=== PATIENT | female | born 1985 | race Caucasian/White ===

== ENCOUNTER 2016-10-05 21:50 | Emergency (ER) | payer SELFPAY ==
[2016-10-05 22:34] VITALS: BP 104/61
[2016-10-06] MEDS ORDERED: HYDROCODONE/ACETAMINOPHEN 5-325 MG TABLET PO ONE (00:18)
[2016-10-06 00:37] LABS: APPEARANCE,URINE SLIGHTLY-CLOUDY; BILIRUBIN,URINE NEGATIVE (NEGATIVE); GLUCOSE, URINE NEGATIVE (NEGATIVE); KETONES,URINE NEGATIVE (NEGATIVE); LEUKOCYTE ESTERASE,URINE SMALL (NEGATIVE); NITRITE,URINE POSITIVE (NEGATIVE); PROTEIN,URINE NEGATIVE (NEGATIVE); URINE SPECIFIC GRAVITY 1.006; UROBILINOGEN,URINE NEGATIVE mg/dL (<2.0)
[2016-10-06] MEDS ORDERED: LIDOCAINE 1% INJ-PF (10 MG/ML) 30 ML SDV INJ ONE (00:43)
[2016-10-06] MEDS ORDERED: CEFTRIAXONE INJ 1000 MG VIAL IM ONE (00:43)
[2016-10-06] MEDS ORDERED: PHENAZOPYRIDINE HCL 200 MG TABLET PO ONE (00:48)
--- NOTE | 2016-10-06 00:48 | ER Document Report ---
ED GI/ - General Chief Complaint: Urinary pain, low back discomfort Stated Complaint: URINARY ISSUE Mode of Arrival: Ambulatory Information source: Patient Notes: Patient is a 31-year-old female who presents to the ER today for 2-3 days of left lower flank pain radiating around now to the left lower abdomen. Patient also admits to dysuria but denies nausea, vomiting, fever, hematuria or history of kidney stones. She denies any abnormal vaginal discharge. TRAVEL OUTSIDE OF THE [place] IN LAST 30 DAYS: No - Related Data Allergies/Adverse Reactions: No Known Allergies Allergy (Verified 09/03/15 16:53) Past Medical History - General Information source: Patient - Social History Smoking Status: Unknown if Ever Smoked Family History: CAD, CVA, DM, Hyperlipidemia, Hypertension, Malignancy - cervical cancer - Past Medical History Cardiac Medical History: Denies: Hx Coronary Artery Disease, Hx Heart Attack, Hx Hypertension, Hx Pulmonary Embolism Pulmonary Medical History: Reports: Hx Asthma - As a child, has albuterol inhaler as needed, hasn't used it for years. Denies: Hx Bronchitis, Hx COPD, Hx Pneumonia, Hx Sleep Apnea, Hx Tuberculosis Neurological Medical History: Denies: Hx Cerebrovascular Accident, Hx Seizures Endocrine Medical History: Denies: Hx Diabetes Mellitus Type 1, Hx Diabetes Mellitus Type 2 Renal/ Medical History: Reports: Hx Ovarian Cysts. Denies: Hx Peritoneal Dialysis, Hx Pelvic Inflammatory Disease Malignancy Medical History: Denies: Hx Cervical Cancer, Hx Ovarian Cancer GI Medical History: Reports: Hx Endoscopy Musculoskeltal Medical History: Denies Hx Arthritis Psychiatric Medical History: Reports: Hx Depression - Past Surgical History: Reports: Hx Section - x3, Hx Oral Surgery, Hx Tubal Ligation. Denies: Hx Hysterectomy, Hx Pacemaker - Immunizations Immunizations up to date: Yes Hx Diphtheria, Pertussis, Tetanus Vaccination: Yes - 2014 Review of Systems - Review of Systems Constitutional: See HPI EENT: No symptoms reported Cardiovascular: No symptoms reported Respiratory: No symptoms reported Gastrointestinal: No symptoms reported Genitourinary: See HPI Female Genitourinary: No symptoms reported Musculoskeletal: No symptoms reported Skin: No symptoms reported Hematologic/Lymphatic: No symptoms reported Neurological/Psychological: No symptoms reported Physical Exam - Vital signs Vitals: Temp Pulse Resp BP Pulse Ox 98.2 F 80 18 104/61 99 10/05/16 22:33 10/05/16 22:33 10/05/16 22:33 10/05/16 22:33 10/05/16 22:33 - Notes Notes: PHYSICAL EXAMINATION: GENERAL: Mildly ill-appearing, but in no acute distress. HEAD: Atraumatic, normocephalic. NECK: Normal range of motion, supple without lymphadenopathy LUNGS: CTAB and equal. No wheezes rales or rhonchi. HEART: Regular rate and rhythm without murmurs ABDOMEN: Soft, mild right lower quadrant and suprapubic tenderness. No guarding , no rebound BACK: no vertebral tenderness, normal ROM GI/: Right CVA tenderness EXTREMITIES: Normal range of motion, no pitting edema. No cyanosis. NEUROLOGICAL: Cranial nerves grossly intact. Normal sensory/motor exams. PSYCH: Normal mood, normal affect. SKIN: Warm, Dry, normal turgor, no rashes or lesions noted Course - Re-evaluation Re-evalutation: 10/06/16 00:46 Urinalysis indicative of urinary tract infection with leukocytes and 22 white blood cells, positive for nitrites. Patient given Rocephin injection here and will be sent home on Keflex. - Vital Signs Vital signs: Temp Pulse Resp BP Pulse Ox 98.2 F 80 18 104/61 99 10/05/16 22:33 10/05/16 22:33 10/05/16 22:33 10/05/16 22:33 10/05/16 22:33 - Laboratory Laboratory results interpreted by me: 10/06/16 00:15 Urine Nitrite POSITIVE H Ur Leukocyte Esterase SMALL H Discharge - Discharge Clinical Impression: UTI (urinary tract infection) Qualifiers: Urinary tract infection type: site unspecified Hematuria presence: without hematuria Qualified Code(s): N39.0 - Urinary tract infection, site not specified Condition: Stable Disposition: HOME, SELF-CARE Instructions: Urinary Anesthetic Agent ([facility]), Urinary Tract Infection ([facility]), Cephalexin ([facility]) Additional Instructions: Please drink plenty of water! please take all of your antibiotics, even if you feel better. Return immediately for any new or worsening symptoms. Follow up with primary care provider, call tomorrow to make followup appointment. Prescriptions: Cephalexin Monohydrate [Keflex 500 mg Capsule] 500 mg PO BID #14 capsule Phenazopyridine HCl [Pyridium 200 mg Tablet] 200 mg PO TID #15 tablet
== END 2016-10-06 01:23 | disposition home or self-care (01) ==
LOC: ER 21:50
DX: N39.0 Urinary tract infection, site not specified (principal)
CPT/HCPCS: 99283; 96372; 81025; 81001; J3490 ×2; J0696

== ENCOUNTER 2016-12-11 02:17 | Emergency (ER) | payer SELFPAY ==
[2016-12-11] MEDS ORDERED: DIPHENHYDRAMINE HCL 50 MG/ML VIAL IV ONE (06:18)
[2016-12-11] MEDS ORDERED: PROCHLORPERAZINE EDISYLATE INJ 10 MG/2 ML VIAL IV ONE (06:18)
[2016-12-11] MEDS ORDERED: NORMAL SALINE 1000 ML 1,000 ML IV ONE (06:18)
--- NOTE | 2016-12-11 06:33 | ER Document Report ---
ED General - General Chief Complaint: Headache Stated Complaint: HEADACHE Time Seen by Provider: 12/11/16 06:17 Mode of Arrival: Ambulatory Information source: Patient Notes: 31 yr old female hx of migraines presents with complaints of similar headache for 2 days. Patient notes headache was gradual associated with nausea vomiting photosensitivity. Patient denies any fevers or chills TRAVEL OUTSIDE OF THE [place] IN LAST 30 DAYS: No - HPI Onset: Other Onset/Duration: Persistent Quality of pain: Achy Severity: Mild Pain Level: 1 Associated symptoms: Headache, Nausea, Vomiting Exacerbated by: Denies Relieved by: Denies Similar symptoms previously: Yes Recently seen / treated by doctor: Yes - Related Data Allergies/Adverse Reactions: No Known Allergies Allergy (Verified 09/03/15 16:53) Past Medical History - Social History Smoking Status: Never Smoker Cigarette use (# per day): No Chew tobacco use (# tins/day): No Smoking Education Provided: No Family History: CAD, CVA, DM, Hyperlipidemia, Hypertension, Malignancy - cervical cancer Patient has suicidal ideation: No Patient has homicidal ideation: No - Past Medical History Cardiac Medical History: Denies: Hx Coronary Artery Disease, Hx Heart Attack, Hx Hypertension, Hx Pulmonary Embolism Pulmonary Medical History: Reports: Hx Asthma - As a child, has albuterol inhaler as needed, hasn't used it for years. Denies: Hx Bronchitis, Hx COPD, Hx Pneumonia, Hx Sleep Apnea, Hx Tuberculosis Neurological Medical History: Denies: Hx Cerebrovascular Accident, Hx Seizures Endocrine Medical History: Denies: Hx Diabetes Mellitus Type 1, Hx Diabetes Mellitus Type 2 Renal/ Medical History: Reports: Hx Ovarian Cysts. Denies: Hx Peritoneal Dialysis, Hx Pelvic Inflammatory Disease Malignancy Medical History: Denies: Hx Cervical Cancer, Hx Ovarian Cancer GI Medical History: Reports: Hx Endoscopy Musculoskeltal Medical History: Denies Hx Arthritis Psychiatric Medical History: Reports: Hx Depression - Past Surgical History: Reports: Hx Section - x3, Hx Oral Surgery, Hx Tubal Ligation. Denies: Hx Hysterectomy, Hx Pacemaker - Immunizations Immunizations up to date: Yes Hx Diphtheria, Pertussis, Tetanus Vaccination: Yes - 2014 Review of Systems - Review of Systems Notes: REVIEW OF SYSTEMS: CONSTITUTIONAL : Denies fever, chills, or sweats. Denies recent illness. EENT: Denies eye, ear, throat, or mouth pain or symptoms. Denies nasal or sinus congestion or discharge. Denies throat, tongue, or mouth swelling or difficulty swallowing. CARDIOVASCULAR: Denies chest pain. Denies palpitations or racing or irregular heart beat. Denies ankle edema. RESPIRATORY: Denies cough, cold, or chest congestion. Denies shortness of breath, difficulty breathing, or wheezing. GASTROINTESTINAL: Nausea vomiting GENITOURINARY: Denies difficulty urinating, painful urination, burning, frequency, blood in urine, or discharge. FEMALE GENITOURINARY: Denies vaginal bleeding, heavy or abnormal periods, irregular periods. Denies vaginal discharge or odor. MUSCULOSKELETAL: Denies back or neck pain or stiffness. Denies joint pain or swelling. SKIN: Denies rash, lesions or sores. HEMATOLOGIC : Denies easy bruising or bleeding. LYMPHATIC: Denies swollen, enlarged glands. NEUROLOGICAL: Admits headaches PSYCHIATRIC: Denies anxiety or stress. Denies depression, suicidal ideation, or homicidal ideation. ALL OTHER SYSTEMS REVIEWED AND NEGATIVE. PHYSICAL EXAMINATION: GENERAL: Well-appearing, well-nourished and in no acute distress. Patient resting in dark room HEAD: Atraumatic, normocephalic. EYES: Pupils equal round and reactive to light, extraocular movements intact, conjunctiva are normal. ENT: Nares patent, oropharynx clear without exudates. Moist mucous membranes. NECK: Normal range of motion, supple without lymphadenopathy LUNGS: Breath sounds clear to auscultation bilaterally and equal. No wheezes rales or rhonchi. HEART: Regular rate and rhythm without murmurs ABDOMEN: Soft, nontender, nondistended abdomen. No guarding, no rebound. No masses appreciated. Female : deferred Musculoskeletal: Normal range of motion, no pitting or edema. No cyanosis. NEUROLOGICAL: Cranial nerves grossly intact. Normal speech, normal gait. Normal sensory, motor exams PSYCH: Normal mood, normal affect. SKIN: Warm, Dry, normal turgor, no rashes or lesions noted. Dictation was performed using [employer] voice recognition software Physical Exam - Vital signs Vitals: Temp Pulse Resp BP Pulse Ox 98.2 F 65 16 126/80 H 100 12/11/16 02:25 12/11/16 02:25 12/11/16 02:25 12/11/16 02:25 12/11/16 02:25 Course - Re-evaluation Re-evalutation: 12/11/16 07:18 Labwork notes no significant abnormality, physical examination noted no significant abnormality either, given that this is a chronic appearing headache with no neurological deficits I believe a CT is an appropriate at this time due to the radiation. Otherwise patient looks well treated symptomatically and will be given follow-up with neurology as she has never seen a neurologist After performing a Medical Screening Examination, I estimate there is LOW risk for ACUTE GLAUCOMA, TEMPORAL ARTERITIS, MENINGITIS, INCRANIAL HEMORRHAGE, or ISCHEMIC STROKE thus I consider the discharge disposition reasonable. I have reevaluated this patient multiple times and no significant life threatening changes are noted. The patient and I have discussed the diagnosis and risks, and we agree with discharging home with close follow-up with the understanding that symptoms and presentations can change. We also discussed returning to the Emergency Department immediately if new or worsening symptoms occur. We have discussed the symptoms which are most concerning (e.g., changing or worsening symptoms, new numbness or weakness, vomiting, fever) that necessitate immediate return. - Vital Signs Vital signs: Temp Pulse Resp BP Pulse Ox 98.2 F 65 16 126/80 H 100 12/11/16 02:25 12/11/16 02:25 12/11/16 02:25 12/11/16 02:25 12/11/16 02:25 - Laboratory Result Diagrams: 12/11/16 06:42 12/11/16 06:42 Laboratory results interpreted by me: 12/11/16 05:39 POC Glucose 112 H Discharge - Discharge Clinical Impression: Migraine Qualifiers: Migraine type: unspecified Status migrainosus presence: without status migrainosus Intractability: not intractable Qualified Code(s): G43.909 - Migraine, unspecified, not intractable, without status migrainosus Condition: Stable Disposition: HOME, SELF-CARE Instructions: Headache ([facility]) Prescriptions: Promethazine HCl [Phenergan 25 mg Tablet] 1 - 2 tab PO Q6H PRN #15 tablet PRN Reason: Referrals: THELMA DIGGS MD [ACTIVE STAFF] - Follow up tomorrow
[2016-12-11 06:50] LABS: ABSOLUTE EOSINOPHILS # (AUTO) 0.4 10^3/uL (0.0-0.6); ABSOLUTE LYMPHOCYTES (AUTO) 2.6 10^3/uL (0.5-4.7); ABSOLUTE MONOCYTES (AUTO) 0.5 10^3/uL (0.1-1.4); ABSOLUTE NEUT (AUTO) 3.4 10^3/uL (1.7-8.2); BASOPHILS % (AUTO) 0.4 % (0-2); EOSINOPHILS % (AUTO) 5.9 % (0-6); HEMOGLOBIN 12.3 g/dL (12.0-15.5); HGB HCT DIFFERENCE -1.1; LYMPHOCYTES % (AUTO) 38.1 % (13-45); MEAN CORPUSCULAR HEMOGLOBIN 29.2 pg (27.0-33.4); MEAN CORPUSCULAR HGB CONC 32.5 g/dL (32.0-36.0); MEAN CORPUSCULAR VOLUME 90 fl (80-97); MONOCYTES % (AUTO) 7.1 % (3-13); RED BLOOD COUNT 4.22 10^6/uL (3.72-5.28); SEGMENTED NEUTROPHILS % (AUTO) 48.5 % (42-78); WHITE BLOOD COUNT 6.9 10^3/uL (4.0-10.5)
[2016-12-11 07:07] LABS: ALANINE AMINOTRANSFERASE 26 U/L (9-52); ALBUMIN 4.4 g/dL (3.5-5.0); ALKALINE PHOSPHATASE 48 U/L (38-126); ANION GAP 11 (5-19); ASPARTATE AMINO TRANSFERASE 18 U/L (14-36); BILIRUBIN,DIRECT 0.3 mg/dL (0.0-0.4); BILIRUBIN,TOTAL 0.4 mg/dL (0.2-1.3); BLOOD UREA NITROGEN 13 mg/dL (7-20); CALCIUM 9.1 mg/dL (8.4-10.2); CARBON DIOXIDE 27 mmol/L (22-30); CHLORIDE 103 mmol/L (98-107); CREATININE RESULT 0.63 mg/dL (0.52-1.25); GLUCOSE 92 mg/dL (75-110); POTASSIUM 4.1 mmol/L (3.6-5.0); SODIUM 141.1 mmol/L (137-145); TOTAL PROTEIN 7.3 g/dL (6.3-8.2)
[2016-12-11 09:07] VITALS: BP 125/72
== END 2016-12-11 09:07 | disposition home or self-care (01) ==
LOC: ER 02:17
DX: G43.909 Migraine, unspecified, not intractable, without status migrainosus (principal); R11.2 Nausea with vomiting, unspecified
CPT/HCPCS: 99283; 96361; 96374; 96375; 36415; 82962; 85025; 80053; J1200; J0780; J7030

== ENCOUNTER 2017-09-10 14:13 | Emergency (ER) | payer MEDICAID ==
--- NOTE | 2017-09-10 14:55 | ER Document Report ---
ED Medical Screen (RME) - General Chief Complaint: Suicidal Ideation Stated Complaint: PSYCH EVAL Time Seen by Provider: 09/10/17 14:53 Notes: RME DISCLOSURE I have seen this patient as part of a Rapid Medical Evaluation and, if applicable, placed any initially appropriate orders. The patient will be seen and fully evaluated, including a full history and physical exam, by a provider ( in Main ED or Fast Track) when a room becomes available. 32-year-old female PMH psychiatric disorders here with mother after she cut her right wrist with a sharp object earlier today. She states that she did not realize what she was doing and that when she finally "snapped out of it" and saw her wounds, she freaked out. She reports having daily suicidal ideations but "I never act on it". She has not been on her psychiatric medications for almost a year. TRAVEL OUTSIDE OF THE [place] IN LAST 30 DAYS: No - Related Data Allergies/Adverse Reactions: No Known Allergies Allergy (Verified 09/03/15 16:53) Past Medical History - Past Medical History Cardiac Medical History: Denies: Hx Coronary Artery Disease, Hx Heart Attack, Hx Hypertension, Hx Pulmonary Embolism Pulmonary Medical History: Reports: Hx Asthma - As a child, has albuterol inhaler as needed, hasn't used it for years. Denies: Hx Bronchitis, Hx COPD, Hx Pneumonia, Hx Sleep Apnea, Hx Tuberculosis Neurological Medical History: Denies: Hx Cerebrovascular Accident, Hx Seizures Endocrine Medical History: Denies: Hx Diabetes Mellitus Type 1, Hx Diabetes Mellitus Type 2 Renal/ Medical History: Reports: Hx Ovarian Cysts. Denies: Hx Peritoneal Dialysis, Hx Pelvic Inflammatory Disease Malignancy Medical History: Denies: Hx Cervical Cancer, Hx Ovarian Cancer GI Medical History: Reports: Hx Endoscopy Musculoskeltal Medical History: Denies Hx Arthritis Psychiatric Medical History: Reports: Hx Depression - Past Surgical History: Reports: Hx Section - x3, Hx Oral Surgery, Hx Tubal Ligation. Denies: Hx Hysterectomy, Hx Pacemaker - Immunizations Immunizations up to date: Yes Hx Diphtheria, Pertussis, Tetanus Vaccination: Yes - 2015 Physical Exam - Vital signs Vitals: Temp Pulse Resp BP Pulse Ox 97.9 F 96 20 116/76 99 09/10/17 14:20 09/10/17 14:20 09/10/17 14:20 09/10/17 14:20 09/10/17 14:20 Course - Vital Signs Vital signs: Temp Pulse Resp BP Pulse Ox 97.9 F 96 20 116/76 99 09/10/17 14:20 09/10/17 14:20 09/10/17 14:20 09/10/17 14:20 09/10/17 14:20
[2017-09-10 15:38] LABS: ABSOLUTE EOSINOPHILS # (AUTO) 0.2 10^3/uL (0.0-0.6); ABSOLUTE MONOCYTES (AUTO) 0.5 10^3/uL (0.1-1.4); ABSOLUTE NEUT (AUTO) 3.7 10^3/uL (1.7-8.2); BASOPHILS % (AUTO) 0.7 % (0-2); HEMATOCRIT 40.4 % (36.0-47.0); HEMOGLOBIN 13.3 g/dL (12.0-15.5); LYMPHOCYTES % (AUTO) 31.3 % (13-45); MEAN CORPUSCULAR HEMOGLOBIN 29.4 pg (27.0-33.4); MEAN CORPUSCULAR VOLUME 89 fl (80-97); MONOCYTES % (AUTO) 8.2 % (3-13); PLATELET COUNT 389 10^3/uL (150-450); RED BLOOD COUNT 4.53 10^6/uL (3.72-5.28); RED CELL DISTRIBUTION WIDTH 12.6 % (11.5-14.0); SEGMENTED NEUTROPHILS % (AUTO) 56.8 % (42-78); TOTAL CELLS COUNTED % (AUTO) 100 %; WHITE BLOOD COUNT 6.5 10^3/uL (4.0-10.5)
[2017-09-10 15:48] LABS: APPEARANCE,URINE CLOUDY; BILIRUBIN,URINE NEGATIVE (NEGATIVE); GLUCOSE, URINE NEGATIVE (NEGATIVE); KETONES,URINE TRACE mg/dL (NEGATIVE); LEUKOCYTE ESTERASE,URINE LARGE (NEGATIVE); NITRITE,URINE NEGATIVE (NEGATIVE); PROTEIN,URINE 30 mg/dL (NEGATIVE); URINE SPECIFIC GRAVITY 1.025; UROBILINOGEN,URINE NEGATIVE mg/dL (<2.0)
[2017-09-10 15:50] LABS: COLOR,URINE DARK YELLOW
[2017-09-10 15:56] LABS: URINE BARBITURATES SCREEN NEGATIVE; URINE BENZODIAZEPINES SCREEN UNCONFIRMED POSITIVE; URINE COCAINE SCREEN NEGATIVE; URINE MARIJUANA (THC) SCREEN NEGATIVE; URINE METHADONE SCREEN NEGATIVE; URINE PHENCYCLIDINE SCREEN NEGATIVE
--- NOTE | 2017-09-10 16:07 | ER Document Report ---
ED Psych Disorder / Suicide <SHANNAN RIGGINS - Last Filed: 09/10/17 17:25> - General TRAVEL OUTSIDE OF THE [place] IN LAST 30 DAYS: No <SHIRLEY JONES - Last Filed: 09/10/17 17:30> - General Chief Complaint: Suicidal Ideation Stated Complaint: PSYCH EVAL Time Seen by Provider: 09/10/17 14:53 Notes: Patient is here because of 2 self-inflicted wounds to the medial right wrist, one occurring 2 days ago and the other occurring today. She does not remember exactly what happens, describing herself as being "blacked out" or "zoned out", and then snapping out of it. She says that she has been diagnosed in the past with ADHD and manic bipolar disorder and in the past has been on Zoloft, Vyvanse , and trazodone, but currently is not seeing a local mental health provider because she does not have insurance and she also does not take her medications very often because of the same reason. She says that she is having difficulty sleeping any at all and her appetite is very poor. Feels like she has frequent panic attacks. Does not specifically say that she has any suicidal thoughts. (SHIRLEY JONES) - Related Data Allergies/Adverse Reactions: No Known Allergies Allergy (Verified 09/03/15 16:53) Past Medical History - Social History Smoking Status: Current Every Day Smoker Chew tobacco use (# tins/day): No Frequency of alcohol use: Occasional Drug Abuse: None Family History: Reviewed & Not Pertinent, CAD, CVA, DM, Hyperlipidemia, Hypertension, Malignancy - cervical cancer Patient has suicidal ideation: Yes Patient has homicidal ideation: No Pulmonary Medical History: Reports: Hx Asthma - As a child, has albuterol inhaler as needed, hasn't used it for years. Renal/ Medical History: Reports: Hx Ovarian Cysts GI Medical History: Reports: Hx Endoscopy Psychiatric Medical History: Reports: Hx Anxiety, Hx Attention Deficit Hyperactivity Disorder, Hx Bipolar Disorder, Hx Depression - Past Surgical History: Reports: Hx Section - x3, Hx Oral Surgery, Hx Tubal Ligation - Immunizations Immunizations up to date: Yes Hx Diphtheria, Pertussis, Tetanus Vaccination: Yes - 2014 <SHIRLEY JONES - Last Filed: 09/10/17 17:30> Review of Systems <SHANNAN RIGGINS - Last Filed: 09/10/17 17:25> <SHIRLEY JONES - Last Filed: 09/10/17 17:30> - Review of Systems Notes: REVIEW OF SYSTEMS: CONSTITUTIONAL : Denies fever. EENT: Denies eye, ear, nose or mouth or throat pain or other symptoms. CARDIOVASCULAR: Denies chest pain. RESPIRATORY: Denies cough, chest congestion, or shortness of breath. GASTROINTESTINAL: Denies abdominal pain or nausea, vomiting, or diarrhea. GENITOURINARY: Denies difficulty or painful urinating, urinary frequency, blood in urine. MUSCULOSKELETAL: Denies back or neck pain. Denies joint pain or swelling. SKIN: Denies rash or skin lesions except for the self-inflicted wound of the right medial wrist region which is described elsewhere in the patient's record. NEUROLOGICAL: See HPI. Denies headache. Denies sensory loss or motor deficits. ALL OTHER SYSTEMS REVIEWED AND NEGATIVE. (SHIRLEY JONES) Physical Exam <SHANNAN RIGGINS - Last Filed: 09/10/17 17:25> - Vital signs Interpretation: Normal <SIHRLEY JONES - Last Filed: 09/10/17 17:30> - Vital signs Vitals: Temp Pulse Resp BP Pulse Ox 97.9 F 96 20 116/76 99 09/10/17 14:20 09/10/17 14:20 09/10/17 14:20 09/10/17 14:20 09/10/17 14:20 - Notes Notes: PHYSICAL EXAMINATION: GENERAL: Well-appearing, in no acute distress. Vital signs are all normal. HEAD: Atraumatic, normocephalic. EYES: Pupils equal round and reactive to light, extraocular movements intact. ENT: oropharynx clear without exudates. Moist mucous membranes. NECK: Normal range of motion, supple. LUNGS: Breath sounds clear and equal bilaterally. HEART: Regular rate and rhythm without murmurs. ABDOMEN: Soft, nontender. No guarding or rebound. No masses. BACK: No tenderness throughout entire back. EXTREMITIES: Normal range of motion without pain. NEUROLOGICAL: Normal speech, normal gait. Normal sensory, motor, and reflex exams. Awake, alert, and oriented x3. Cranial nerves normal. PSYCH: Normal mood, normal affect. Does not act depressed. SKIN: Warm, dry, no rashes. Patient has a superficial longitudinal laceration of the medial aspect of the right wrist, proximal to the wrist joint itself. This laceration is about 3 cm in length but not very deep and does not require suturing. Towards the distal end of that longitudinal laceration is a crossing laceration that is about 1 cm in total length and is to is superficial and does not require sutures. No evidence of infection of either of these wounds. ( SHIRLEY JONES) Course - Laboratory Result Diagrams: 09/10/17 15:16 09/10/17 15:16 <SHANNAN RIGGINS - Last Filed: 09/10/17 17:25> - Laboratory Result Diagrams: 09/10/17 15:16 09/10/17 15:16 - EKG Interpretation by Nc EKG shows normal: Sinus rhythm Rate: Normal Rhythm: NSR - At 72 <SHIRLEY JONES - Last Filed: 09/10/17 17:30> - Re-evaluation Re-evalutation: 09/10/17 16:13 Routine labs will be ordered. Consultation by mental health has been requested. (SHIRLEY JONES) - Vital Signs Vital signs: Temp Pulse Resp BP Pulse Ox 97.9 F 96 20 116/76 99 09/10/17 14:20 09/10/17 14:20 09/10/17 14:20 09/10/17 14:20 09/10/17 14:20 - Laboratory Laboratory results interpreted by ne: 09/10/17 09/10/17 15:16 15:16 Alkaline Phosphatase 36 L Urine Protein 30 H Urine Ketones TRACE H Urine Blood SMALL H Ur Leukocyte Esterase LARGE H Salicylates < 1.0 L Acetaminophen < 10 L - EKG Interpretation by Nc Additional EKG results interpreted by ne: 09/10/17 16:16 EKG is normal. (SHIRLEY JONES) Discharge <SHANNAN RIGGINS - Last Filed: 09/10/17 17:25> <SHIRLEY JONES - Last Filed: 09/10/17 17:30> - Discharge Clinical Impression: Substance abuse Condition: Stable Disposition: HOME, SELF-CARE Additional Instructions: AMPHETAMINE / METHAMPHETAMINE ABUSE: Amphetamines are addicting stimulants. Amphetamines overstimulate the nervous system and give a false feeling of power and mastery. These drugs may be obtained as prescription pills for weight loss, narcolepsy, or attention- deficit disorder. More often they're bought as an illegal street drug, methamphetamine (crank, crystal, speed). Using amphetamines repeatedly can lead to serious medical problems including malnutrition, severe depression, and paranoia. It can take increasing amounts to feel good. Eventually, there will be a "burn out." When you go off amphetamines there is a period of depression that may last for weeks or even months. High doses of amphetamines can cause seizures, confusion, hallucinations, delusions, high blood pressure, muscle damage, heart damage, or sudden . Many times these deadly complications occur even with "normal" doses. Injection of amphetamines is risky for developing abscesses, endocarditis ( heart infection), pneumonia, and AIDS. Withdrawal from amphetamines often causes anxiety, depression, and drug cravings. Some users become paranoid and psychotic. There may be cramps, nausea , and vomiting. Many treatment programs are available, but you must make the decision to quit. Medication can be prescribed to control the symptoms of amphetamine toxicity (beta blockers or benzodiazepines). Withdrawal symptoms may require tranquilizers. FOLLOW-UP CARE: Please follow-up with outpatient mental health provider in 3-5 days for continued mental health treatment. It you are encouraged to receive a substance abuse assessment to further identify appropriate treatment. If you experience worsening or a significant change in your symptoms, notify the physician immediately or return to the Emergency Department at any time for re- evaluation.
[2017-09-10 16:14] LABS: ALANINE AMINOTRANSFERASE 19 U/L (9-52); ALBUMIN 4.2 g/dL (3.5-5.0); ALKALINE PHOSPHATASE 36 U/L (38-126); ANION GAP 8 (5-19); ASPARTATE AMINO TRANSFERASE 22 U/L (14-36); BILIRUBIN,DIRECT 0.3 mg/dL (0.0-0.4); BILIRUBIN,TOTAL 0.3 mg/dL (0.2-1.3); BLOOD UREA NITROGEN 7 mg/dL (7-20); CALCIUM 9.5 mg/dL (8.4-10.2); CARBON DIOXIDE 30 mmol/L (22-30); CHLORIDE 106 mmol/L (98-107); GLUCOSE 103 mg/dL (75-110); POTASSIUM 4.6 mmol/L (3.6-5.0); SODIUM 144.3 mmol/L (137-145); TOTAL PROTEIN 6.5 g/dL (6.3-8.2)
[2017-09-10 16:16] LABS: ACETAMINOPHEN < 10 ug/mL (10-30); ALCOHOL < 10 mg/dL (NONE DETECTED); SALICYLATE < 1.0 mg/dL (2.0-20.0)
[2017-09-10 17:46] VITALS: BP 105/61
--- NOTE | 2017-09-10 21:01 | EKG REPORT ---
SEVERITY:- NORMAL ECG - SINUS RHYTHM : Confirmed by: Maria D Newman 10-Sep-2017 21:01:35
--- NOTE | 2017-09-12 09:53 | PSYCHOLOGICAL NOTE ---
Psych Note - Psych Note Psych Note: Reason from consult: "blacking out" self harm consent permissions: both patient's parent Pt presented to the ED with complaints of suicidal ideation/attempt today. Pt has cut on inside of right wrist. Pt reports that cutting wrist twice but doesn' t remember doing it. Pt reports that she blacked out. Pt reports trouble sleeping and anxiety attacks. Patient disclosed difficulties with concentration. He was just arrested and the patient and her children are currently living with her brother. She use to be seen at [facility] before we lost insurance. She disclosed she found one last Vyvanse the other night and took it "to just get through the day." She reports that last night she got "into a trance or something...walked into the bathroom and started cutting." She reports that she "woke up" and saw what she did and "freaked out." She denies wanting to hurt herself. Public record indicates the patient does not have any court dates coming up and the [place] controlled substance report does not indicate any concerning trends Patient's toxicology report indicates patient has multiple substance in her system (patient disclosed taking only one vyvanse, "the other night") and high probability of methamphetamine. Patient's parents came into the room and clinician again confirmed consent permissions. After patient consented, clinician discussed substance abuse. Patient denies and stated she does not know how she would have been exposed to drugs. Patient's father stated, "remember that pill I confiscated from you? ...Her brother found her last night completely out of it...he was scared and called me." Patient disclosed that it was given to her to only calm her anxiety. Clinician discussed the importance of not taking medication from other people and only taking her medication as prescribed. Patient is alert and orientated to person,place, time and circumstance. Mood is anxious with congruent affect (chewing on her nails, with her other arm wrapped around her stomach- mild psychomotor agitation with shaking her foot. Patient denies suicidal and homicidal ideation. She discloses a "trance" or "black out" were she did self harm; clinician observed some superficial scratches going across her inner wrist. Patient appears to have been under the influence of drugs at the time. Delusions are absent and behaviors congruent with intact reality based presentation i.e. organized and linear thought processes. Eye contact was well-maintained. Conversational speech is within normal rate, tone and prosody. Intellectual abilities appear to be within the average range. Attention and concentration are good. Insight, judgment, impulse control are currently good. Substance abuse Impression\\plan: Patient is cleared from acute psychiatric services. Patient does not meet IVC criteria per [place] GS 122C. Patient describes concern over a period of a "trance" or "blackout" that she experienced last night when she engaged in self-harm. Patient denies suicidal ideation or wanting to harm herself. Upon further investigation patient appeared to have taken an unknown substance last night that led her to be "completely out of it" per her father. Clinician discussed at great length the importance of taking only your medication as prescribed and not taking illegal substances. Patient's father had many questions in regards to substance abuse; clinician provided basic information and suggested family research substance abuse online together. Patient's family is in agreement to this. Patient was provided local resource list to include mobile crisis contact information. Patient is encouraged to have a substance abuse evaluation to determine proper treatment through an outpatient mental health provider. Dr. Olson was consulted and the care and management of this patient; attending physician is in agreement with her conditions and disposition.
== END 2017-09-10 17:46 | disposition home or self-care (01) ==
LOC: ER 14:13
DX: R45.851 Suicidal ideations (principal); F17.200 Nicotine dependence, unspecified, uncomplicated; F19.10 Other psychoactive substance abuse, uncomplicated; Z98.51 Tubal ligation status
CPT/HCPCS: 36415; 80053; 80307; 81001; 85025; 93005; 93010; 99285

== ENCOUNTER 2017-11-10 18:47 | Emergency (ER) | payer MEDICAID ==
[2017-11-10 18:58] VITALS: BP 110/70
== END 2017-11-10 20:07 | disposition left against medical advice (07) ==
LOC: ER 18:47
DX: Z53.21 Procedure and treatment not carried out due to patient leaving prior to being seen by health care provider (principal)

== ENCOUNTER 2017-11-29 23:11 | Emergency (ER) | payer SELFPAY ==
[2017-11-30] MEDS ORDERED: HYDROCODONE/ACETAMINOPHEN 5-325 MG TABLET PO ONE (00:27)
--- NOTE | 2017-11-30 01:16 | RADIOLOGY REPORT (SQ) ---
EXAM DESCRIPTION: XR ANKLE 2 VIEWS COMPLETED DATE/TME: 11/29/2017 23:25 CLINICAL HISTORY: 32 years, Female, pain COMPARISON: None. NUMBER OF VIEWS: Three views TECHNIQUE: AP lateral and oblique views of the ankle LIMITATIONS: None. FINDINGS: No ankle effusion. No acute fracture. Soft tissue swelling laterally. Talar dome appears intact. IMPRESSION: Soft tissue swelling laterally without acute fracture noted 2010 [employer]- All Rights Reserved
--- NOTE | 2017-11-30 01:19 | ER Document Report ---
ED General - General Chief Complaint: Ankle Pain Stated Complaint: RIGHT ANKLE PAIN Time Seen by Provider: 11/30/17 00:18 Notes: Patient is a 32-year-old female presents with complaint of pain swelling to the lateral aspect of the right ankle. Patient says it has been there for over 2 days. She is unsure exactly what happened but she thinks she has some sort of insect or possible spider bite to her ankle. She said she said continues redness and swelling over the lateral area. Says it hurts to bear weight. She has been taken [id number] pain medicine but still has a lot of pain. She denies any snake bites are seening a snake. She denies being bitten while she was [place] the [place]. TRAVEL OUTSIDE OF THE [place] IN LAST 30 DAYS: No - Related Data Allergies/Adverse Reactions: No Known Allergies Allergy (Verified 09/03/15 16:53) Past Medical History - Social History Smoking Status: Never Smoker Frequency of alcohol use: None Drug Abuse: None Family History: Reviewed & Not Pertinent, CAD, CVA, DM, Hyperlipidemia, Hypertension, Malignancy - cervical cancer - Past Medical History Cardiac Medical History: Denies: Hx Coronary Artery Disease, Hx Heart Attack, Hx Hypertension, Hx Pulmonary Embolism Pulmonary Medical History: Reports: Hx Asthma - As a child, has albuterol inhaler as needed, hasn't used it for years. Denies: Hx Bronchitis, Hx COPD, Hx Pneumonia, Hx Sleep Apnea, Hx Tuberculosis Neurological Medical History: Denies: Hx Cerebrovascular Accident, Hx Seizures Endocrine Medical History: Denies: Hx Diabetes Mellitus Type 1, Hx Diabetes Mellitus Type 2 Renal/ Medical History: Reports: Hx Ovarian Cysts. Denies: Hx Peritoneal Dialysis, Hx Pelvic Inflammatory Disease Malignancy Medical History: Denies: Hx Cervical Cancer, Hx Ovarian Cancer GI Medical History: Reports: Hx Endoscopy Musculoskeltal Medical History: Denies Hx Arthritis Psychiatric Medical History: Reports: Hx Anxiety, Hx Attention Deficit Hyperactivity Disorder, Hx Bipolar Disorder, Hx Depression - Past Surgical History: Reports: Hx Section - x3, Hx Oral Surgery, Hx Tubal Ligation. Denies: Hx Hysterectomy, Hx Pacemaker - Immunizations Immunizations up to date: Yes Hx Diphtheria, Pertussis, Tetanus Vaccination: Yes - 2015 Review of Systems - Review of Systems Notes: My Normal Review Basic REVIEW OF SYSTEMS: CONSTITUTIONAL : Denies fever, chills, or sweats. Denies recent illness. RESPIRATORY: Denies cough, cold, or chest congestion. Denies shortness of breath, difficulty breathing, or wheezing. GASTROINTESTINAL: Denies abdominal pain. Denies nausea, vomiting, or diarrhea. MUSCULOSKELETAL: Pain and swelling to right ankle. SKIN: Denies rash or skin lesions. NEUROLOGICAL: Denies sensory or motor loss. ALL OTHER SYSTEMS REVIEWED AND NEGATIVE. Physical Exam - Vital signs Vitals: Temp Pulse Resp BP Pulse Ox 98.4 F 89 18 104/61 100 11/29/17 23:55 11/29/17 23:55 11/29/17 23:55 11/29/17 23:55 11/29/17 23:55 - Notes Notes: General Appearance: Well nourished, alert, cooperative, no acute distress, moderate obvious discomfort. Vitals: reviewed, See vital signs table. Extremities: strength 5/5 in all extremities, good pulses in all extremities, patient is a localized area of redness and swelling to the lateral malleolus of the right ankle. Redness is very faint is consistent with that of a venomous bite of some sort. Redness is just localized to the malleolus itself. There is no swelling going up the leg. There are not any arshad consistent with that of snakebite. She has good distal sensation good pulses. Good capillary refill in the foot. Skin: warm, dry, appropriate color, no rash Neuro: speech clear, oriented x 3, normal affect, responds appropriately to questions. Course - Re-evaluation Re-evalutation: 11/30/17 01:24 Patient's findings are consistent with that of a venomous bite or sting. She does have a tenderness associated with it. She does not have any skin breakdown or soft tissue breakdown as she would see with a primary clues and brown recluse bite would be very rare in her area. She has not had any abdominal pain vomiting or muscle aches as she would see with a black . She does have a very small round possible bite olga the center of the area of erythema. Findings more consistent with that of a bug bite. She does not have arshad that are consistent with that of snakebite. Encourage her to keep her foot elevated. Encourage her to do ice alternating. I will prescribe her some pain medicine. X-ray did not show any bony injury or foreign body. I informed patient that her swelling and redness should improve in the next 1-2 days. If it does not she must return to ER immediately. I encouraged her return to ER immediately if she has any increasing swelling, spreading redness, fevers, or feels unwell. Patient agrees with plan will be discharged home. Dictation of this chart was performed using voice recognition software; therefore, there may be some unintended grammatical errors. - Vital Signs Vital signs: Temp Pulse Resp BP Pulse Ox 98.4 F 89 18 104/61 100 11/29/17 23:55 11/29/17 23:55 11/29/17 23:55 11/29/17 23:55 11/29/17 23:55 Discharge - Discharge Clinical Impression: Right ankle pain Qualifiers: Chronicity: acute Qualified Code(s): M25.571 - Pain in right ankle and joints of right foot Condition: Good Disposition: HOME, SELF-CARE Instructions: Oral Narcotic Medication ([facility]) Additional Instructions: Please keep the ankle elevated and apply ice for no more than 20 minutes at a time. Please return to the ER immediately if you have worsening redness, increasing swelling, fevers, or feel unwell. Please return to the ER if you do not have improvement in swelling within 3 days.
[2017-11-30 02:09] VITALS: BP 106/76
== END 2017-11-30 01:25 | disposition home or self-care (01) ==
LOC: ER 23:11
DX: M25.571 Pain in right ankle and joints of right foot (principal); M25.471 Effusion, right ankle; L53.9 Erythematous condition, unspecified
CPT/HCPCS: 99283

== ENCOUNTER → 2018-11-17 | Outpatient (CLI) | payer MEDICAID ==
[2018-11-17 19:14] LABS: ABSOLUTE EOSINOPHILS # (AUTO) 0.4 10^3/uL (0.0-0.6); ABSOLUTE LYMPHOCYTES (AUTO) 2.2 10^3/uL (0.5-4.7); ABSOLUTE MONOCYTES (AUTO) 0.5 10^3/uL (0.1-1.4); ABSOLUTE NEUT (AUTO) 3.8 10^3/uL (1.7-8.2); BASOPHILS % (AUTO) 0.4 % (0-2); EOSINOPHILS % (AUTO) 5.3 % (0-6); HEMOGLOBIN 12.4 g/dL (12.0-15.5); LYMPHOCYTES % (AUTO) 31.8 % (13-45); MEAN CORPUSCULAR HEMOGLOBIN 29.8 pg (27.0-33.4); MEAN CORPUSCULAR HGB CONC 33.6 g/dL (32.0-36.0); MEAN CORPUSCULAR VOLUME 89 fl (80-97); MONOCYTES % (AUTO) 6.8 % (3-13); PLATELET COUNT 376 10^3/uL (150-450); RED BLOOD COUNT 4.16 10^6/uL (3.72-5.28); RED CELL DISTRIBUTION WIDTH 12.6 % (11.5-14.0); SEGMENTED NEUTROPHILS % (AUTO) 55.7 % (42-78); TOTAL CELLS COUNTED % (AUTO) 100 %; WHITE BLOOD COUNT 6.8 10^3/uL (4.0-10.5)
[2018-11-22 11:09] LABS: LYME DISEASE IGM AB <0.80 index (0.00-0.79)
== END ==
LOC: LAB 18:44
PROVIDERS: ATTEND Nurse Practitioner Acute Care
DX: T14.8XXA Other injury of unspecified body region, initial encounter (principal); W57.XXXA Bitten or stung by nonvenomous insect and other nonvenomous arthropods, initial encounter
CPT/HCPCS: 36415; 85025; 86617; 86618

== ENCOUNTER 2018-12-02 17:25 | Emergency (ER) | payer MEDICAID ==
--- NOTE | 2018-12-02 17:36 | ER Document Report ---
ED Medical Screen (RME) - General Chief Complaint: Suicidal Ideation Stated Complaint: PSYCH EVAL Time Seen by Provider: 12/02/18 17:30 Primary Care Provider: CRISTIAN RODRIGUEZ NP [Primary Care Provider] - Follow up as needed Mode of Arrival: Ambulatory Information source: Patient Notes: 33-year-old female presented to ED [facility]. She states she is been having a lot of issues with her brother and other issues happening which is made her depression much worse and then yesterday her best friend took a bunch of her diabetic pills to commit suicide and the patient has been told that the friend is now brain with organ damage and no neurological function. She states this is made her severely depressed and she is afraid she will cut herself she says she does not want to kill herself but she is afraid she will. She then stated she was not having suicidal thoughts she just does not want to mutilate herself. Patient is alert oriented respirations regular and unlabored speaking with full sentences. She is with her mother. I have greeted and performed a rapid initial assessment of this patient. A comprehensive ED assessment and evaluation of the patient, analysis of test results and completion of medical decision making process will be conducted by an additional ED providers. Dictation of this chart was performed using voice recognition software; therefore, there may be some unintended grammatical errors. TRAVEL OUTSIDE OF THE [place] IN LAST 30 DAYS: No - Related Data Allergies/Adverse Reactions: No Known Allergies Allergy (Verified 12/02/18 17:28) Past Medical History - Past Medical History Cardiac Medical History: Denies: Hx Coronary Artery Disease, Hx Heart Attack, Hx Hypertension, Hx Pulmonary Embolism Pulmonary Medical History: Reports: Hx Asthma - As a child, has albuterol inhaler as needed, hasn't used it for years. Denies: Hx Bronchitis, Hx COPD, Hx Pneumonia, Hx Sleep Apnea, Hx Tuberculosis Neurological Medical History: Denies: Hx Cerebrovascular Accident, Hx Seizures Endocrine Medical History: Denies: Hx Diabetes Mellitus Type 1, Hx Diabetes Mellitus Type 2 Renal/ Medical History: Reports: Hx Ovarian Cysts. Denies: Hx Peritoneal Dialysis, Hx Pelvic Inflammatory Disease Malignancy Medical History: Denies: Hx Cervical Cancer, Hx Ovarian Cancer GI Medical History: Reports: Hx Endoscopy Musculoskeltal Medical History: Denies Hx Arthritis Psychiatric Medical History: Reports: Hx Anxiety, Hx Attention Deficit Hyperactivity Disorder, Hx Bipolar Disorder, Hx Depression - Past Surgical History: Reports: Hx Section - x3, Hx Oral Surgery, Hx Tubal Ligation. Denies: Hx Hysterectomy, Hx Pacemaker - Immunizations Immunizations up to date: Yes Hx Diphtheria, Pertussis, Tetanus Vaccination: Yes - 2014 Doctor's Discharge - Discharge Referrals: CRISTIAN RODRIGUEZ NP [Primary Care Provider] - Follow up as needed
[2018-12-02 18:31] LABS: ABSOLUTE EOSINOPHILS # (AUTO) 0.3 10^3/uL (0.0-0.6); ABSOLUTE LYMPHOCYTES (AUTO) 2.3 10^3/uL (0.5-4.7); ABSOLUTE MONOCYTES (AUTO) 0.5 10^3/uL (0.1-1.4); ABSOLUTE NEUT (AUTO) 6.4 10^3/uL (1.7-8.2); BASOPHILS % (AUTO) 0.3 % (0-2); EOSINOPHILS % (AUTO) 3.3 % (0-6); HEMATOCRIT 37.1 % (36.0-47.0); HEMOGLOBIN 12.4 g/dL (12.0-15.5); LYMPHOCYTES % (AUTO) 23.8 % (13-45); MEAN CORPUSCULAR HEMOGLOBIN 29.4 pg (27.0-33.4); MEAN CORPUSCULAR HGB CONC 33.4 g/dL (32.0-36.0); MEAN CORPUSCULAR VOLUME 88 fl (80-97); MONOCYTES % (AUTO) 5.6 % (3-13); PLATELET COUNT 363 10^3/uL (150-450); TOTAL CELLS COUNTED % (AUTO) 100 %; WHITE BLOOD COUNT 9.6 10^3/uL (4.0-10.5)
[2018-12-02 18:38] LABS: APPEARANCE,URINE CLEAR; BILIRUBIN,URINE NEGATIVE (NEGATIVE); COLOR,URINE YELLOW; GLUCOSE, URINE NEGATIVE (NEGATIVE); KETONES,URINE NEGATIVE (NEGATIVE); LEUKOCYTE ESTERASE,URINE NEGATIVE (NEGATIVE); NITRITE,URINE NEGATIVE (NEGATIVE); PROTEIN,URINE NEGATIVE (NEGATIVE); URINE SPECIFIC GRAVITY 1.029; UROBILINOGEN,URINE NEGATIVE mg/dL (<2.0)
[2018-12-02 18:51] LABS: ALANINE AMINOTRANSFERASE 19 U/L (9-52); ALBUMIN 4.2 g/dL (3.5-5.0); ALKALINE PHOSPHATASE 37 U/L (38-126); ANION GAP 7 (5-19); ASPARTATE AMINO TRANSFERASE 16 U/L (14-36); BILIRUBIN,DIRECT 0.2 mg/dL (0.0-0.4); BILIRUBIN,TOTAL 0.2 mg/dL (0.2-1.3); BLOOD UREA NITROGEN 15 mg/dL (7-20); CARBON DIOXIDE 25 mmol/L (22-30); CHLORIDE 106 mmol/L (98-107); POTASSIUM 4.3 mmol/L (3.6-5.0); SODIUM 138.3 mmol/L (137-145); TOTAL PROTEIN 6.6 g/dL (6.3-8.2)
[2018-12-02 18:55] LABS: URINE AMPHETAMINES SCREEN NEGATIVE; URINE BENZODIAZEPINES SCREEN NEGATIVE; URINE COCAINE SCREEN NEGATIVE; URINE MARIJUANA (THC) SCREEN NEGATIVE; URINE METHADONE SCREEN NEGATIVE; URINE PHENCYCLIDINE SCREEN NEGATIVE
[2018-12-02 19:03] LABS: ACETAMINOPHEN < 10 ug/mL (10-30); ALCOHOL < 10 mg/dL (NONE DETECTED); SALICYLATE < 1.0 mg/dL (2.0-20.0); URINE BARBITURATES SCREEN NEGATIVE
[2018-12-02 19:05] LABS: GLUCOSE 68 mg/dL (75-110)
[2018-12-02] MEDS ORDERED: NICOTINE 14 MG/24 HR PATCH.TD24 TD ONE (22:33)
[2018-12-03 06:55] VITALS: BP 110/70
--- NOTE | 2018-12-03 07:52 | ER Document Report ---
Entered by KYRA MOORE SCRIBE 12/02/18 [id number] Acting as scribe for:CALE CHASE DO ED Psych Disorder / Suicide - General Chief Complaint: Suicidal Ideation Stated Complaint: PSYCH EVAL Time Seen by Provider: 12/02/18 17:30 Primary Care Provider: CRISTIAN RODRIGUEZ NP [Family Provider] - Follow up as needed Mode of Arrival: Ambulatory Notes: Patient is a 33-year-old female with manic depressive disorder, anxiety and a history of suicidal ideation and suicide attempts presents to the emergency department complaining of suicidal ideation. Patient states she has been under a lot of stress recently and reports her friend recently attempted suicide and is now brain . She also states her brother has been "starting crap", and she has had increased stress with work and her 4 children. Patient states she has thought about cutting her wrists and decided to come to the emergency department due to these thoughts. She states she has attempted suicide multiple times in the past with her last attempt being "quite awhile ago". She denies any recent medications or following up with mental health. TRAVEL OUTSIDE OF THE [place] IN LAST 30 DAYS: No - Related Data Allergies/Adverse Reactions: No Known Allergies Allergy (Verified 12/02/18 17:28) Past Medical History - General Information source: Patient - Social History Smoking Status: Current Every Day Smoker Chew tobacco use (# tins/day): No Frequency of alcohol use: None Drug Abuse: None Family History: Reviewed & Not Pertinent, CAD, CVA, DM, Hyperlipidemia, Hypertension, Malignancy - cervical cancer Patient has suicidal ideation: No Patient has homicidal ideation: No Pulmonary Medical History: Reports: Hx Asthma - As a child, has albuterol inhaler as needed, hasn't used it for years. Renal/ Medical History: Reports: Hx Ovarian Cysts GI Medical History: Reports: Hx Endoscopy Psychiatric Medical History: Reports: Hx Anxiety, Hx Attention Deficit Hyperactivity Disorder, Hx Depression - Past Surgical History: Reports: Hx Section - x3, Hx Oral Surgery, Hx Tubal Ligation - Immunizations Immunizations up to date: Yes Hx Diphtheria, Pertussis, Tetanus Vaccination: Yes - 2014 Review of Systems - Review of Systems Constitutional: No symptoms reported EENT: No symptoms reported Cardiovascular: No symptoms reported Respiratory: No symptoms reported Gastrointestinal: No symptoms reported Genitourinary: No symptoms reported Female Genitourinary: No symptoms reported Musculoskeletal: No symptoms reported Skin: No symptoms reported Hematologic/Lymphatic: No symptoms reported Neurological/Psychological: See HPI, Suicidal ideation -: Yes All other systems reviewed and negative Physical Exam - Vital signs Vitals: Temp Pulse Resp BP Pulse Ox 98.2 F 76 18 110/70 98 12/03/18 06:46 12/03/18 06:46 12/03/18 06:46 12/03/18 06:46 12/03/18 06:46 - Notes Notes: GENERAL: Alert, interacts well. No acute distress. HEAD: Normocephalic, atraumatic. EYES: Pupils equal, round, and reactive to light. Extraocular movements intact. ENT: Oral mucosa moist, tongue midline. NECK: Full range of motion. Supple. Trachea midline. LUNGS: Clear to auscultation bilaterally, no wheezes, rales, or rhonchi. No respiratory distress. HEART: Regular rate and rhythm. No murmurs, gallops, or rubs. ABDOMEN: Soft, non-tender. Non-distended. Bowel sounds present in all 4 quadrants. No guarding, rigidity, or rebound. EXTREMITIES: Moves all 4 extremities spontaneously. NEUROLOGICAL: Alert and oriented x3. Normal speech. PSYCH: Normal affect, normal mood. SKIN: Warm, dry, normal turgor. No rashes or lesions noted. Course - Re-evaluation Re-evalutation: 12/03/18 07:49 CBC unremarkable, CMP unremarkable, aside from low glucose however patient is now being fed, test is negative, urinalysis unremarkable, salicylates, alcohol and acetaminophen are all undetectable as is the urine drug screen. Patient will be kept overnight for evaluation by mental health team in the morning. Patient is a voluntary commitment at this time. - Vital Signs Vital signs: Temp Pulse Resp BP Pulse Ox 98.2 F 76 18 110/70 98 12/03/18 06:46 12/03/18 06:46 12/03/18 06:46 12/03/18 06:46 12/03/18 06:46 - Laboratory Result Diagrams: 12/02/18 18:00 12/02/18 18:00 Laboratory results interpreted by me: 12/02/18 18:00 Glucose 68 L Alkaline Phosphatase 37 L Salicylates < 1.0 L Acetaminophen < 10 L - EKG Interpretation by Me Additional EKG results interpreted by me: 12/03/18 02:28 EKG shows sinus rhythm at a rate of 84, normal axis, normal intervals, no ST segment elevations or depressions, no T wave inversions per my interpretation. Discharge - Discharge Clinical Impression: Suicidal ideation Condition: Stable Disposition: PSYCH HOSP/UNIT Referrals: CRISTIAN RODRIGUEZ NP [Family Provider] - Follow up as needed I personally performed the services described in the documentation, reviewed and edited the documentation which was dictated to the scribe in my presence, and it accurately records my words and actions.
--- NOTE | 2018-12-03 09:27 | PSYCHOLOGICAL NOTE ---
Psych Note - Psych Note Date seen by psych provider: 12/03/18 Time seen by psych provider: 07:45 Psych Note: Reason for consult: Suicidal ideation Patient presented to [facility] ED with passive suicidal ideation and impulses to engage in her maladaptive coping skill of cutting. Patient does have a long history of this buildup of coping skill. She has been able to successfully avoid cutting for the last few days however her impulses of gone and so strong she came into request for help. Patient states she has been off her medications for approximately a month and a half and would like assistance in getting back on medication to assist in stability. Patient was able to identify triggers such as fighting with her brother and [id number] who are her primary caregivers of her children and a friend in [place] who attempted suicide. Patient was able to effectively be engaged with clinician to discuss her emotions surrounding her friend (i.e. guilt at not seeing signs when she saw her 1 week ago). Clinician provided psychoeducation on survivor guilt, bereavement, and the importance of both therapeutic services and medication management. Patient is alert and orientated to person,place, time and circumstance. Mood is euthymic with congruent affect as evidenced by smiling and engaging with clinician. Patient reports passive suicidal ideation i.e. no plans means or intent yesterday denies current. Patient reports coming in because of thoughts of self-harm and using her maladaptive coping skill of cutting. Patient denies homicidal ideation. Delusions are absent and behaviors congruent with intact reality based presentation i.e. organized and linear thought processes. Eye contact was well-maintained. Conversational speech is within normal rate, tone and prosody. Intellectual abilities appear to be within the average range. Attention and concentration are good. Insight, judgment, impulse control are currently good. Unspecified bipolar per history provided by patient Medication recommendations per [facility]'s contracted psychiatrist Dr. Kevin BLEVINS are as follows Zyprexa 2.5 mg twice daily Impression\plan: Patient is cleared from acute psychiatric services. Patient presented to [facility] ED after thoughts of self-harm i.e. maladaptive coping skill of cutting. Patient admits to passive suicidal ideation yesterday i.e. no plans means or intent her denies current. Patient requests assistance in getting back on medications because of increased in stressors. Patient is able to effectively engage with clinician and identifies supports, triggers, and demonstrated problem-solving skills and positive coping skills. Medication recommendations have been provided. Patient is recommended to follow-up with her outpatient mental health provider, [facility], for her continued outpatient mental health services. Dr. Olson was consulted and the care management of this patient; attending physicians in agreement with recommendations and disposition.
[2018-12-03] MEDS ORDERED: OLANZAPINE 2.5 MG TABLET PO ONE (09:35)
--- NOTE | 2018-12-04 00:07 | EKG REPORT ---
SEVERITY:- NORMAL ECG - SINUS RHYTHM : Confirmed by: Maria D Newman 04-Dec-2018 00:06:29
== END 2018-12-03 10:51 | disposition home or self-care (01) ==
LOC: ER 17:25
DX: R45.851 Suicidal ideations (principal); F31.9 Bipolar disorder, unspecified; F17.200 Nicotine dependence, unspecified, uncomplicated; Z98.51 Tubal ligation status
CPT/HCPCS: 93005; 99285; 36415; 80307 ×4; 84703; 85025; 80053; 81001; 93010; J3490 ×2

== ENCOUNTER 2020-01-31 16:30 | Emergency (ER) | payer MEDICAID ==
[2020-01-31 16:58] VITALS: BP 106/58
--- NOTE | 2020-01-31 17:11 | ER Document Report ---
ED Respiratory Problem - General Chief Complaint: Cough Stated Complaint: COUGH,CONGESTION,SHORT OF BREATH Time Seen by Provider: 01/31/20 16:51 Notes: CHIEF COMPLAINT: Cough for 3 days with some shortness of breath HPI: 34-year-old female who smokes with cough 3 days with mild shortness of breath. Taken no medications for her symptoms. States she had a negative cover test at work 2 weeks ago. Does not feel like she has COVID. Is worried about bronchitis. No fever ROS: See HPI - all other systems were reviewed and are otherwise negative Constitutional: no fever Eyes: no drainage, no blurred vision ENT: no runny nose, no sore throat Cardiovascular: no chest pain Resp: + SOB, + cough GI: no vomiting, no diarrhea, no abdominal pain : no dysuria Integumentary: no rash Allergy: no hives Musculoskeletal: no extremity pain or swelling Neurological: no numbness/tingling, no weakness MEDICATIONS: I agree with the patient medications as charted by the RN. ALLERGIES: I agree with the allergies as charted by the RN. PAST MEDICAL HISTORY/PAST SURGICAL HISTORY: Reviewed and agree as charted by RN. SOCIAL HISTORY: Reviewed and agree as charted by RN. FAMILY HISTORY: No significant familial comorbid conditions directly related to patient complaint EXAM: Reviewed vital signs as charted by RN. CONSTITUTIONAL: Alert and oriented and responds appropriately to questions. Well-appearing; well-nourished HEAD: Normocephalic; atraumatic EYES: PERRL; Conjunctivae clear, sclerae non-icteric ENT: normal nose; no rhinorrhea; moist mucous membranes; pharynx without lesions noted, no uvula edema or deviation, no tonsillar hypertrophy, phonation normal NECK: Supple without meningismus; non-tender; no cervical lymphadenopathy, no masses CARD: RRR; no murmurs, no clicks, no rubs, no gallops; symmetric distal pulses RESP: Normal chest excursion without splinting or tachypnea; breath sounds clear and equal bilaterally; no wheezes, no rhonchi, no rales, pulse oximetry 99% on room air not hypoxic ABD/GI: Normal bowel sounds; non-distended; soft, non-tender, no rebound, no guarding; no palpable organomegaly or masses. BACK: The back appears normal and is non-tender to palpation, there is no CVA tenderness EXT: Normal ROM in all joints; non-tender to palpation; no cyanosis, no effusions, no edema SKIN: Normal color for age and race; warm; dry; good turgor; no acute lesions noted NEURO: Moves all extremities equally; Motor and sensory function intact PSYCH: The patient's mood and manner are appropriate. Grooming and personal hygiene are appropriate. MDM: 34-year-old female with cough for 3 days somewhat nonproductive no adventitious lung sounds or wheezing but subjective shortness of breath. Declines COVID testing. States she had a negative test within the last 2 weeks. It was not symptom related but work-related. Will obtain chest x-ray to evaluate for infiltrate if negative will place on albuterol inhaler, Mucinex. If positive will treat for pneumonia or bronchitis TRAVEL OUTSIDE OF THE [place] IN LAST 30 DAYS: No - Related Data Allergies/Adverse Reactions: No Known Allergies Allergy (Verified 01/31/20 16:58) Past Medical History - Social History Smoking Status: Current Every Day Smoker Family History: Reviewed & Not Pertinent, CAD, CVA, DM, Hyperlipidemia, Hypertension, Malignancy - cervical cancer Patient has homicidal ideation: No - Past Medical History Cardiac Medical History: Denies: Hx Coronary Artery Disease, Hx Heart Attack, Hx Hypertension, Hx Pulmonary Embolism Pulmonary Medical History: Reports: Hx Asthma - As a child, has albuterol inhaler as needed, hasn't used it for years. Denies: Hx Bronchitis, Hx COPD, Hx Pneumonia, Hx Sleep Apnea, Hx Tuberculosis Neurological Medical History: Denies: Hx Cerebrovascular Accident, Hx Seizures Endocrine Medical History: Denies: Hx Diabetes Mellitus Type 1, Hx Diabetes Mellitus Type 2 Renal/ Medical History: Reports: Hx Ovarian Cysts. Denies: Hx Peritoneal Dialysis, Hx Pelvic Inflammatory Disease Malignancy Medical History: Denies: Hx Cervical Cancer, Hx Ovarian Cancer GI Medical History: Reports: Hx Endoscopy Musculoskeletal Medical History: Denies Hx Arthritis Psychiatric Medical History: Reports: Hx Anxiety, Hx Attention Deficit Hyperactivity Disorder, Hx Bipolar Disorder, Hx Depression - Past Surgical History: Reports: Hx Section - x3, Hx Oral Surgery, Hx Tubal Ligation. Denies: Hx Hysterectomy, Hx Pacemaker - Immunizations Immunizations up to date: Yes Hx Diphtheria, Pertussis, Tetanus Vaccination: Yes - 2014 Physical Exam - Vital signs Vitals: Temp Pulse Resp BP Pulse Ox 98.7 F 69 15 106/58 L 100 01/31/20 16:51 01/31/20 16:51 01/31/20 16:51 01/31/20 16:51 01/31/20 16:51 Course - Re-evaluation Re-evalutation: 01/31/20 17:33 Chest x-ray on my review does not show an acute process or infiltrate. Will discharge to follow-up with PCP symptomatically she declines COVID testing - Vital Signs Vital signs: Temp Pulse Resp BP Pulse Ox 98.7 F 69 15 106/58 L 100 01/31/20 16:51 01/31/20 16:51 01/31/20 16:51 01/31/20 16:51 01/31/20 16:51 Discharge - Discharge Clinical Impression: Viral upper respiratory infection Condition: Stable Disposition: HOME, SELF-CARE Additional Instructions: 1. take the medications as prescribed 2. if you were prescribed an Albuterol inhaler, use it as instructed, 2 puffs e very 4 hours as needed for cough/wheezing 3. call your primary care provider as soon as possible to schedule recheck appt. in the office. 4. return to the ED for any worsening condition, shortness of breath or continued fever that does not resolve with Motrin/Tylenol 5. Stop smoking Prescriptions: Guaifenesin/Dextromethorphan [Mucinex Dm ER 600-30 mg Tablet] 1 each PO BID #20 tab.er.12h Albuterol Sulfate [Proair HFA Inhalation Aerosol 8.5 gm MDI] 2 puff IH Q4H PRN #1 mdi PRN Reason: Referrals: JESS OGLESBY MD [[facility]AFF] - Follow up as needed
--- NOTE | 2020-01-31 17:42 | RADIOLOGY REPORT (SQ) ---
EXAM DESCRIPTION: CHEST SINGLE VIEW IMAGES COMPLETED DATE/TIME: 01/31/2020 5:28 pm REASON FOR STUDY: cough COMPARISON: None. NUMBER OF VIEWS: One view. TECHNIQUE: Single frontal radiographic view of the chest acquired. LIMITATIONS: None. FINDINGS: LUNGS AND PLEURA: No opacities, masses or pneumothorax. No pleural effusion. MEDIASTINUM AND HILAR STRUCTURES: No masses. Contour normal. HEART AND VASCULAR STRUCTURES: Heart normal in size. Normal vasculature. BONES: No acute findings. HARDWARE: None in the chest. OTHER: No other significant finding. IMPRESSION: NO SIGNIFICANT RADIOGRAPHIC FINDING IN THE CHEST. TECHNICAL DOCUMENTATION: JOB ID: [id number] 2010 [employer]- All Rights Reserved Reading location - IP/workstation name: [email or web address]
== END 2020-01-31 17:56 | disposition home or self-care (01) ==
LOC: ER 16:30
DX: J06.9 Acute upper respiratory infection, unspecified (principal); B97.89 Other viral agents as the cause of diseases classified elsewhere; R05 Cough; J45.909 Unspecified asthma, uncomplicated; F17.200 Nicotine dependence, unspecified, uncomplicated
CPT/HCPCS: 71045; 99283